=== PATIENT | female | born 1960 | race Caucasian/White ===

== ENCOUNTER 2021-11-11 08:26 | Outpatient (CLI) | payer BC | END 2021-11-11 08:27 | disposition home or self-care (01) | LOC: CSHMAMMO 08:26 | PROVIDERS: ATTEND Family Medicine | DX: Z12.31 Encounter for screening mammogram for malignant neoplasm of breast (principal); Z80.3 Family history of malignant neoplasm of breast | CPT/HCPCS: 77063; 77067 ==

== ENCOUNTER 2022-12-15 09:31 | Outpatient (CLI) | payer BC | END 2022-12-15 09:32 | disposition home or self-care (01) | LOC: CSHMAMMO 09:31 | PROVIDERS: ATTEND Family Medicine | DX: Z12.31 Encounter for screening mammogram for malignant neoplasm of breast (principal); Z80.3 Family history of malignant neoplasm of breast | CPT/HCPCS: 77063; 77067 ==